=== PATIENT | male | born 1950 | race Caucasian/White ===

== ENCOUNTER 2021-02-17 10:20 | Emergency (ER) | payer MEDICARE ==
[~2021-02-17] VITALS: Ht 175.3 cm; Wt 81.0 kg
[~2021-02-17 10:20] MED LIST: POLY17PO10 PO
[2021-02-17 14:04] VITALS: BP 165/98
[2021-02-17 14:42] LABS: BASOPHILS % (AUTO) 0.4 % (0-1); EOSINOPHILS % (AUTO) 0.2 % (0-6); HEMATOCRIT 38.6 % (42.0-52.0); LYMPHOCYTES # (AUTO) 0.9 X10'3 (1.1-4.8); LYMPHOCYTES % (AUTO) 10.9 % (21-51); MEAN CORPUSCULAR HEMOGLOBIN 35.6 PG (27.0-31.0); MEAN CORPUSCULAR HGB CONC 33.7 g/dL (33.0-36.5); MEAN CORPUSCULAR VOLUME 105.7 FL (78-98); MEAN PLATELET VOLUME 8.3 FL (7.4-10.4); MONOCYTES # (AUTO) 0.8 X10'3 (0-0.9); NEUTROPHILS # (AUTO) 6.2 X10'3 (1.8-7.7); NEUTROPHILS % (AUTO) 78.5 % (42-75); PLATELET COUNT 136 X10'3 (140-440); RED BLOOD COUNT 3.65 X10'6 (4.70-6.10); RED CELL DISTRIBUTION WIDTH 14.2 % (11.5-14.5); WHITE BLOOD COUNT 7.8 X10'3 (4.5-11.0)
[2021-02-17 14:55] LABS: PARTIAL THROMBOPLASTIN TIME 31 SECONDS (22-32)
[2021-02-17 14:56] LABS: ALANINE AMINOTRANSFERASE 99 U/L (12-78); ALBUMIN 2.5 G/DL (3.4-5.0); ALBUMIN/GLOBULIN RATIO 0.5 (1.1-1.5); ALKALINE PHOSPHATASE 103 IU/L (46-116); ANION GAP 9 (8-16); ASPARTATE AMINO TRANSFERASE 129 U/L (10-37); BILIRUBIN,TOTAL 3.8 MG/DL (0.1-1.0); BLOOD UREA NITROGEN 8 MG/DL (7-18); BUN/CREATININE RATIO 10.8 (5.4-32.0); CALCIUM 8.3 MG/DL (8.5-10.1); CHLORIDE 96 MMOL/L (99-107); CREATININE 0.74 MG/DL (0.60-1.10); GLUCOSE 111 MG/DL (70-104); POTASSIUM 3.5 MMOL/L (3.5-5.1); SODIUM 132 MMOL/L (135-145); TOTAL CARBON DIOXIDE 26.7 MMOL/L (24-32); TOTAL PROTEIN 7.2 G/DL (6.4-8.2); eGFR > 90 ML/MIN
[2021-02-17] MEDS ORDERED: SPIR25TA5 PO (15:19)
== END 2021-02-17 15:29 | disposition home or self-care (01) ==
LOC: ER 10:21
DX: K70.31 Alcoholic cirrhosis of liver with ascites (principal); R19.00 Intra-abdominal and pelvic swelling, mass and lump, unspecified site; I10 Essential (primary) hypertension; Z98.890 Other specified postprocedural states; Z72.89 Other problems related to lifestyle; Z79.899 Other long term (current) drug therapy
CPT/HCPCS: 36415; 80053; 85025; 85610; 85730; 93005; 99284

== ENCOUNTER 2021-03-04 06:01 | Day surgery (SDC) | payer MEDICARE ==
[~2021-03-04] VITALS: Ht 175.3 cm; Wt 83.1 kg
[~2021-03-04 06:01] MED LIST changes: +SPIR25TA5 PO
[2021-03-04 06:19] VITALS: BP 143/99
[2021-03-04] MEDS ORDERED: albumin 25% 100mL bottle x 1 IV PRN (06:25)
[2021-03-04] MEDS ORDERED: normal saline 1000ml 1,000 ML IV PRN (06:25)
[2021-03-04] MEDS ORDERED: SPIR25TA5 PO ×2 (06:25→06:26)
[2021-03-04] MEDS ORDERED: OMEP40CA21 PO (06:26)
[2021-03-04 08:47] VITALS: BP 118/80
[2021-03-04 09:02] VITALS: BP 105/69
[2021-03-04 09:17] VITALS: BP 106/73
[2021-03-04 09:32] VITALS: BP 115/68
[2021-03-04 09:50] VITALS: BP 116/74
== END 2021-03-04 10:05 | disposition home or self-care (01) ==
LOC: SSTAY O 06:01
PROVIDERS: ATTEND Radiology Diagnostic Radiology
DX: K70.31 Alcoholic cirrhosis of liver with ascites (principal); I10 Essential (primary) hypertension; Z98.890 Other specified postprocedural states; Z72.89 Other problems related to lifestyle; Z79.899 Other long term (current) drug therapy
CPT/HCPCS: 49083; P9047

== ENCOUNTER 2021-03-12 07:16 | Day surgery (SDC) | payer MEDICARE ==
[~2021-03-12] VITALS: Ht 172.7 cm; Wt 79.1 kg
[~2021-03-12 07:16] MED LIST changes: +OMEP40CA21 PO; -POLY17PO10 PO
[2021-03-12] MEDS ORDERED: albumin 25% 100mL bottle x 1 IV PRN (07:45)
[2021-03-12 08:59] VITALS: BP 99/54
[2021-03-12 09:15] VITALS: BP 100/64
[2021-03-12 09:30] VITALS: BP 110/62
[2021-03-12 09:45] VITALS: BP 96/62
[2021-03-12 10:00] VITALS: BP 105/53
[2021-03-12 10:15] VITALS: BP 110/66
== END 2021-03-12 10:49 | disposition home or self-care (01) ==
LOC: SSTAY O 07:16
PROVIDERS: ATTEND Radiology Vascular & Interventional Radiology
DX: K70.31 Alcoholic cirrhosis of liver with ascites (principal); I10 Essential (primary) hypertension; Z79.899 Other long term (current) drug therapy; Z72.89 Other problems related to lifestyle
CPT/HCPCS: 49083; P9047

== ENCOUNTER 2021-03-20 06:56 | Day surgery (SDC) | payer MEDICARE ==
[~2021-03-20] VITALS: Ht 175.3 cm; Wt 75.7 kg
[2021-03-20 07:20] VITALS: BP 135/89
[2021-03-20] MEDS ORDERED: albumin 25% 100mL bottle x 1 IV PRN (07:30)
[2021-03-20 09:00] VITALS: BP 109/69
== END 2021-03-20 09:05 | disposition home or self-care (01) ==
LOC: SSTAY O 06:56
PROVIDERS: ATTEND Preventive Medicine Aerospace Medicine
DX: K70.31 Alcoholic cirrhosis of liver with ascites (principal); Z53.8 Procedure and treatment not carried out for other reasons; I10 Essential (primary) hypertension; K21.9 Gastro-esophageal reflux disease without esophagitis; Z79.899 Other long term (current) drug therapy
CPT/HCPCS: 76705

== ENCOUNTER 2021-03-31 07:04 | Day surgery (SDC) | payer MEDICARE ==
[~2021-03-31] VITALS: Ht 175.3 cm; Wt 79.2 kg
[2021-03-31] VITALS (8 sets, daily range): BP systolic 106–123; BP diastolic 54–77
[2021-03-31] MEDS ORDERED: albumin 25% 100mL bottle x 1 IV PRN (07:25)
== END 2021-03-31 11:00 | disposition home or self-care (01) ==
LOC: SSTAY O 07:04
PROVIDERS: ATTEND Radiology Vascular & Interventional Radiology
DX: K70.31 Alcoholic cirrhosis of liver with ascites (principal); I10 Essential (primary) hypertension; K21.9 Gastro-esophageal reflux disease without esophagitis; Z79.899 Other long term (current) drug therapy
CPT/HCPCS: 49083

== ENCOUNTER 2021-04-14 08:14 | Day surgery (SDC) | payer MEDICARE ==
[2021-04-14] VITALS (8 sets, daily range): BP systolic 107–124; BP diastolic 62–83
[~2021-04-14] VITALS: Ht 175.3 cm; Wt 82.4 kg
[2021-04-14] MEDS ORDERED: albumin 25% 100mL bottle x 1 IV PRN (08:35)
== END 2021-04-14 11:45 | disposition home or self-care (01) ==
LOC: SSTAY O 08:14
PROVIDERS: ATTEND Radiology Vascular & Interventional Radiology
DX: K70.31 Alcoholic cirrhosis of liver with ascites (principal); I10 Essential (primary) hypertension; K21.9 Gastro-esophageal reflux disease without esophagitis; Z72.89 Other problems related to lifestyle; Z79.899 Other long term (current) drug therapy
CPT/HCPCS: 49083; P9047

== ENCOUNTER 2021-04-27 07:12 | Day surgery (SDC) | payer MEDICARE ==
[~2021-04-27] VITALS: Ht 175.3 cm; Wt 84.3 kg
[~2021-04-27 07:12] MED LIST changes: -SPIR25TA5 PO
[2021-04-27 07:40] VITALS: BP 130/81
[2021-04-27] MEDS ORDERED: albumin 25% 100mL bottle x 1 IV PRN (07:40)
[2021-04-27 08:00] VITALS: BP 118/81
[2021-04-27 09:00] VITALS: BP 120/69
[2021-04-27 10:00] VITALS: BP 100/55
== END 2021-04-27 10:00 | disposition home or self-care (01) ==
LOC: SSTAY O 07:12
PROVIDERS: ATTEND Preventive Medicine Aerospace Medicine
DX: K70.31 Alcoholic cirrhosis of liver with ascites (principal); I10 Essential (primary) hypertension; K21.9 Gastro-esophageal reflux disease without esophagitis; Z79.899 Other long term (current) drug therapy
CPT/HCPCS: 49083; P9047

== ENCOUNTER 2021-05-07 07:11 | Day surgery (SDC) | payer MEDICARE ==
[~2021-05-07] VITALS: Ht 175.3 cm; Wt 83.9 kg
[2021-05-07] VITALS (7 sets, daily range): BP systolic 95–141; BP diastolic 61–91
[2021-05-07] MEDS ORDERED: albumin 25% 100mL bottle x 1 IV PRN (07:45)
== END 2021-05-07 09:55 | disposition home or self-care (01) ==
LOC: SSTAY O 07:11
PROVIDERS: ATTEND Radiology Diagnostic Radiology
DX: K70.31 Alcoholic cirrhosis of liver with ascites (principal); K21.9 Gastro-esophageal reflux disease without esophagitis; Z72.89 Other problems related to lifestyle; Z79.899 Other long term (current) drug therapy
CPT/HCPCS: 49083; P9047

== ENCOUNTER 2021-05-18 07:34 | Day surgery (SDC) | payer MEDICARE ==
[~2021-05-18] VITALS: Ht 175.3 cm; Wt 84.6 kg
[2021-05-18] VITALS (7 sets, daily range): BP systolic 73–133; BP diastolic 28–102
[2021-05-18] MEDS ORDERED: albumin 25% 100mL bottle x 1 IV PRN (08:05)
== END 2021-05-18 10:20 | disposition home or self-care (01) ==
LOC: SSTAY O 07:34
PROVIDERS: ATTEND Radiology Vascular & Interventional Radiology
DX: K70.31 Alcoholic cirrhosis of liver with ascites (principal); I10 Essential (primary) hypertension; K21.9 Gastro-esophageal reflux disease without esophagitis; Z79.899 Other long term (current) drug therapy; Z98.890 Other specified postprocedural states
CPT/HCPCS: 49083; P9047

== ENCOUNTER 2021-05-25 07:23 | Day surgery (SDC) | payer MEDICARE ==
[~2021-05-25] VITALS: Ht 175.3 cm; Wt 82.3 kg
[2021-05-25] VITALS (7 sets, daily range): BP systolic 110–132; BP diastolic 62–83
[2021-05-25] MEDS ORDERED: albumin 25% 100mL bottle x 1 IV PRN (07:50)
== END 2021-05-25 09:43 | disposition home or self-care (01) ==
LOC: SSTAY O 07:23
PROVIDERS: ATTEND Preventive Medicine Aerospace Medicine
DX: K70.31 Alcoholic cirrhosis of liver with ascites (principal); I10 Essential (primary) hypertension; K21.9 Gastro-esophageal reflux disease without esophagitis; Z79.899 Other long term (current) drug therapy
CPT/HCPCS: 49083; P9047

== ENCOUNTER 2021-06-01 07:03 | Day surgery (SDC) | payer MEDICARE ==
[~2021-06-01] VITALS: Ht 175.3 cm; Wt 82.7 kg
[2021-06-01 07:30] VITALS: BP 126/69
[2021-06-01] MEDS ORDERED: albumin 25% 100mL bottle x 1 IV PRN (07:35)
[2021-06-01 09:34] VITALS: BP 116/72
== END 2021-06-01 10:25 | disposition home or self-care (01) ==
LOC: SSTAY O 07:03
PROVIDERS: ATTEND Radiology Vascular & Interventional Radiology
DX: K70.31 Alcoholic cirrhosis of liver with ascites (principal); I10 Essential (primary) hypertension; K21.9 Gastro-esophageal reflux disease without esophagitis; Z72.89 Other problems related to lifestyle; Z79.899 Other long term (current) drug therapy
CPT/HCPCS: 49083; P9047

== ENCOUNTER 2021-06-09 07:11 | Day surgery (SDC) | payer MEDICARE ==
[2021-06-09] VITALS (7 sets, daily range): BP systolic 114–158; BP diastolic 61–85
[~2021-06-09] VITALS: Ht 175.3 cm; Wt 82.9 kg
[2021-06-09] MEDS ORDERED: LIDOcaine 1% 30ml preserv. free vial SQ STA (07:24)
[2021-06-09] MEDS ORDERED: normal saline 1000ml 1,000 ML IV PRN (07:30)
[2021-06-09] MEDS ORDERED: albumin 25% 100mL bottle x 1 IV PRN (07:30)
== END 2021-06-09 10:40 | disposition home or self-care (01) ==
LOC: SSTAY O 07:11
PROVIDERS: ATTEND Radiology Diagnostic Radiology
DX: K70.31 Alcoholic cirrhosis of liver with ascites (principal); I10 Essential (primary) hypertension; K21.9 Gastro-esophageal reflux disease without esophagitis; Z79.899 Other long term (current) drug therapy
CPT/HCPCS: 49083

== ENCOUNTER 2021-06-16 07:05 | Day surgery (SDC) | payer MEDICARE ==
[~2021-06-16] VITALS: Ht 175.3 cm; Wt 83.7 kg
[~2021-06-16 07:05] MED LIST changes: +LIDOcaine 1% 30ml preserv. free vial SQ STA
[2021-06-16] MEDS ORDERED: albumin 25% 100mL bottle x 1 IV PRN (07:30)
[2021-06-16 07:38] VITALS: BP 128/88
[2021-06-16 09:26] VITALS: BP 126/78
[2021-06-16 09:30] VITALS: BP 143/83
[2021-06-16 09:45] VITALS: BP 124/72
[2021-06-16 10:00] VITALS: BP 115/81
[2021-06-16 10:15] VITALS: BP 145/81
== END 2021-06-16 10:30 | disposition home or self-care (01) ==
LOC: SSTAY O 07:05
PROVIDERS: ATTEND Radiology Vascular & Interventional Radiology
DX: K70.31 Alcoholic cirrhosis of liver with ascites (principal); I10 Essential (primary) hypertension; K21.9 Gastro-esophageal reflux disease without esophagitis; Z79.899 Other long term (current) drug therapy
CPT/HCPCS: 49083; J2001; P9047

== ENCOUNTER 2021-06-25 06:58 | Day surgery (SDC) | payer MEDICARE ==
[~2021-06-25] VITALS: Ht 175.3 cm; Wt 83.5 kg
[2021-06-25] VITALS (7 sets, daily range): BP systolic 114–140; BP diastolic 68–87
[~2021-06-25 06:58] MED LIST changes: -LIDOcaine 1% 30ml preserv. free vial SQ STA
[2021-06-25] MEDS ORDERED: albumin 25% 100mL bottle x 1 IV PRN (07:40)
[2021-06-25] MEDS ORDERED: LIDOcaine 1% 30ml preserv. free vial IJ STA (07:59)
== END 2021-06-25 10:20 | disposition home or self-care (01) ==
LOC: SSTAY O 06:58
PROVIDERS: ATTEND Radiology Diagnostic Radiology
DX: K70.31 Alcoholic cirrhosis of liver with ascites (principal); I10 Essential (primary) hypertension; K21.9 Gastro-esophageal reflux disease without esophagitis; Z79.899 Other long term (current) drug therapy
CPT/HCPCS: 49083; P9047

== ENCOUNTER 2021-07-06 07:02 | Day surgery (SDC) | payer MEDICARE ==
[~2021-07-06] VITALS: Ht 175.3 cm; Wt 84.4 kg
[2021-07-06] MEDS ORDERED: LIDOcaine 1% 30ml preserv. free vial SQ STA (07:30)
[2021-07-06] MEDS ORDERED: albumin 25% 100mL bottle x 1 IV PRN (07:35)
[2021-07-06 07:52] VITALS: BP 116/74
[2021-07-06 19:31] VITALS: BP 112/69
[2021-07-06 19:34] VITALS: BP 110/70
== END 2021-07-06 10:15 | disposition home or self-care (01) ==
LOC: SSTAY O 07:02
PROVIDERS: ATTEND Preventive Medicine Aerospace Medicine
DX: K70.31 Alcoholic cirrhosis of liver with ascites (principal); I10 Essential (primary) hypertension; K21.9 Gastro-esophageal reflux disease without esophagitis; Z72.89 Other problems related to lifestyle; Z79.899 Other long term (current) drug therapy
CPT/HCPCS: 49083; P9047

== ENCOUNTER 2021-07-14 07:05 | Day surgery (SDC) | payer MEDICARE ==
[~2021-07-14] VITALS: Ht 175.3 cm; Wt 85.0 kg
[2021-07-14] MEDS ORDERED: albumin 25% 100mL bottle x 1 IV PRN (07:25)
[2021-07-14 07:37] VITALS: BP 128/76
[2021-07-14] MEDS ORDERED: LIDOcaine 1% 30ml preserv. free vial SQ STA (07:44)
[2021-07-14 09:15] VITALS: BP 121/82
[2021-07-14 09:21] VITALS: BP 127/74
[2021-07-14 09:36] VITALS: BP 133/82
[2021-07-14 09:51] VITALS: BP 122/83
[2021-07-14 10:06] VITALS: BP 128/57
== END 2021-07-14 10:15 | disposition home or self-care (01) ==
LOC: SSTAY O 07:05
PROVIDERS: ATTEND Radiology Vascular & Interventional Radiology
DX: K70.31 Alcoholic cirrhosis of liver with ascites (principal); I10 Essential (primary) hypertension; K21.9 Gastro-esophageal reflux disease without esophagitis; Z79.899 Other long term (current) drug therapy
CPT/HCPCS: 49083; P9047

== ENCOUNTER 2021-07-23 06:45 | Day surgery (SDC) | payer MEDICARE ==
[~2021-07-23] VITALS: Ht 175.3 cm; Wt 84.7 kg
[2021-07-23] MEDS ORDERED: albumin 25% 100mL bottle x 1 IV PRN (07:05)
[2021-07-23 08:03] VITALS: BP 133/90
[2021-07-23] MEDS ORDERED: LIDOcaine 1% 30ml preserv. free vial SQ STA (08:26)
[2021-07-23 09:11] VITALS: BP 120/86
[2021-07-23 09:26] VITALS: BP 130/77
[2021-07-23 09:41] VITALS: BP 140/65
[2021-07-23 09:56] VITALS: BP 115/50
[2021-07-23 10:11] VITALS: BP 111/75
== END 2021-07-23 10:19 | disposition home or self-care (01) ==
LOC: SSTAY O 06:45
PROVIDERS: ATTEND Preventive Medicine Aerospace Medicine
DX: K70.31 Alcoholic cirrhosis of liver with ascites (principal); I10 Essential (primary) hypertension; K21.9 Gastro-esophageal reflux disease without esophagitis; Z79.899 Other long term (current) drug therapy
CPT/HCPCS: 49083; J3490; P9047

== ENCOUNTER 2021-07-30 07:01 | Day surgery (SDC) | payer MEDICARE ==
[~2021-07-30] VITALS: Ht 175.3 cm; Wt 80.0 kg
[2021-07-30] VITALS (7 sets, daily range): BP systolic 107–128; BP diastolic 72–81
[2021-07-30] MEDS ORDERED: albumin 25% 100mL bottle x 1 IV PRN (07:20)
[2021-07-30] MEDS ORDERED: FURO-150 PO (07:29)
[2021-07-30] MEDS ORDERED: SPIR50TA5 PO (07:29)
[2021-07-30] MEDS ORDERED: LIDOcaine 1% 30ml preserv. free vial SQ STA (07:36)
== END 2021-07-30 09:50 | disposition home or self-care (01) ==
LOC: SSTAY O 07:01
PROVIDERS: ATTEND Preventive Medicine Aerospace Medicine
DX: K70.31 Alcoholic cirrhosis of liver with ascites (principal); I10 Essential (primary) hypertension; K21.9 Gastro-esophageal reflux disease without esophagitis; Z72.89 Other problems related to lifestyle; Z79.899 Other long term (current) drug therapy
CPT/HCPCS: 49083; P9047

== ENCOUNTER 2021-08-10 07:06 | Day surgery (SDC) | payer MEDICARE ==
[~2021-08-10] VITALS: Ht 175.3 cm; Wt 77.4 kg
[~2021-08-10 07:06] MED LIST changes: +FURO-150 PO; +SPIR50TA5 PO
[2021-08-10 07:17] VITALS: BP 145/92
[2021-08-10] MEDS ORDERED: albumin 25% 100mL bottle x 1 IV PRN (07:25)
== END 2021-08-10 08:40 | disposition home or self-care (01) ==
LOC: SSTAY O 07:06
PROVIDERS: ATTEND Preventive Medicine Aerospace Medicine
DX: K70.31 Alcoholic cirrhosis of liver with ascites (principal); Z53.8 Procedure and treatment not carried out for other reasons; I10 Essential (primary) hypertension; K21.9 Gastro-esophageal reflux disease without esophagitis; Z79.899 Other long term (current) drug therapy
CPT/HCPCS: 76705

== ENCOUNTER 2021-09-14 08:37 | Day surgery (SDC) | payer MEDICARE ==
[~2021-09-14] VITALS: Ht 175.3 cm; Wt 80.6 kg
[2021-09-14] MEDS ORDERED: LIDOcaine 1% 30ml preserv. free vial SQ STA (08:48)
[2021-09-14] MEDS ORDERED: normal saline 1000ml 1,000 ML IV PRN (08:55)
[2021-09-14] MEDS ORDERED: albumin 25% 100mL bottle x 1 IV PRN (08:55)
[2021-09-14 09:11] VITALS: BP 140/84
[2021-09-14 09:15] VITALS: BP 140/84
== END 2021-09-14 09:20 | disposition home or self-care (01) ==
LOC: SSTAY O 08:37
PROVIDERS: ATTEND Radiology Diagnostic Radiology
DX: K70.31 Alcoholic cirrhosis of liver with ascites (principal); I10 Essential (primary) hypertension; K21.9 Gastro-esophageal reflux disease without esophagitis; Z79.899 Other long term (current) drug therapy
CPT/HCPCS: 49083

== ENCOUNTER 2021-10-23 07:47 | Day surgery (SDC) | payer MEDICARE ==
[~2021-10-23] VITALS: Ht 175.3 cm; Wt 82.7 kg
[~2021-10-23 07:47] MED LIST changes: +LIDOcaine 1%/PF 5ML 10 MG/ML VIAL IJ ONE
[2021-10-23 08:00] VITALS: BP 130/89
[2021-10-23] MEDS ORDERED: albumin 25% 100mL bottle x 1 IV PRN (08:00)
[2021-10-23 09:08] VITALS: BP 121/70
== END 2021-10-23 09:29 | disposition home or self-care (01) ==
LOC: SSTAY O 07:47
PROVIDERS: ATTEND Radiology Diagnostic Radiology
DX: K70.31 Alcoholic cirrhosis of liver with ascites (principal); Z53.8 Procedure and treatment not carried out for other reasons; I10 Essential (primary) hypertension; K21.9 Gastro-esophageal reflux disease without esophagitis; Z79.899 Other long term (current) drug therapy
CPT/HCPCS: 76705

== ENCOUNTER 2022-12-03 09:18 | Emergency (ER) | payer MEDICARE ==
[~2022-12-03] VITALS: Ht 175.3 cm; Wt 81.8 kg
[~2022-12-03 09:18] MED LIST changes: -LIDOcaine 1%/PF 5ML 10 MG/ML VIAL IJ ONE
[2022-12-03 09:30] LABS: BASOPHILS % (AUTO) 0.4 % (0-1); EOSINOPHILS % (AUTO) 0.1 % (0-6); HEMATOCRIT 40.6 % (42.0-52.0); HEMOGLOBIN 13.7 g/dl (14.0-17.9); LYMPHOCYTES # (AUTO) 0.4 X10'3 (1.1-4.8); LYMPHOCYTES % (AUTO) 8.4 % (21-51); MEAN CORPUSCULAR HEMOGLOBIN 35.2 PG (27.0-31.0); MEAN CORPUSCULAR HGB CONC 33.6 g/dL (33.0-36.5); MEAN CORPUSCULAR VOLUME 104.6 FL (78-98); MEAN PLATELET VOLUME 7.3 FL (7.4-10.4); MONOCYTES # (AUTO) 0.3 X10'3 (0-0.9); MONOCYTES % (AUTO) 6.6 % (2-12); NEUTROPHILS # (AUTO) 4.3 X10'3 (1.8-7.7); NEUTROPHILS % (AUTO) 84.5 % (42-75); PLATELET COUNT 55 X10'3 (140-440); RED BLOOD COUNT 3.89 X10'6 (4.70-6.10); RED CELL DISTRIBUTION WIDTH 13.3 % (11.5-14.5)
[2022-12-03 09:47] LABS: ALANINE AMINOTRANSFERASE 65 U/L (12-78); ALBUMIN 3.6 G/DL (3.4-5.0); ALBUMIN/GLOBULIN RATIO 0.7 (1.1-1.5); ALKALINE PHOSPHATASE 89 IU/L (46-116); ANION GAP 12 (8-16); ASPARTATE AMINO TRANSFERASE 114 U/L (10-37); BILIRUBIN,TOTAL 3.5 MG/DL (0.1-1.0); BLOOD UREA NITROGEN 17 MG/DL (7-18); BUN/CREATININE RATIO 11.3 (10.0-20.0); CALCIUM 9.2 MG/DL (8.5-10.1); CHLORIDE 93 MMOL/L (99-107); GLUCOSE 128 MG/DL (70-104); POTASSIUM 3.9 MMOL/L (3.5-5.1); SODIUM 132 MMOL/L (135-145); TOTAL CARBON DIOXIDE 26.7 MMOL/L (24-32); eGFR 46 ML/MIN
[2022-12-03 09:55] LABS: CHOL/HDL RATIO 2.2 (0.00-4.99); CHOLESTEROL 186 MG/DL (0-200); HDL CHOLESTEROL 86 MG/DL (35-60); LDL CHOLESTEROL 93 MG/DL (50-100); MAGNESIUM 1.9 MG/DL (1.5-2.4); TRIGLYCERIDES 51 MG/DL (20-135)
[2022-12-03 10:07] LABS: PLATELET ESTIMATE DECREASED; TOTAL CELLS COUNTED 100
[2022-12-03] MEDS ORDERED: ondansetron/PF 4mg/2ml inj IV ONE (10:35)
[2022-12-03 11:33] LABS: CLARITY,URINE CLOUDY (Clear); COLOR,URINE YELLOW (Yellow); GLUCOSE, URINE NEGATIVE (Neg); KETONES,URINE 15 mg/dl (Neg); LEUKOCYTE ESTERASE ,URINE NEGATIVE (Neg); OCCULT BLOOD,URINE MODERATE (Neg); PROTEIN,URINE NEGATIVE (Neg)
[2022-12-03 11:47] LABS: UA COLLECTION TYPE CLN CATCH MIDSTREAM
[2022-12-03 11:48] LABS: NITRITES, URINE NEGATIVE (Neg); RBC,URINE 50-100 /HPF (0-2)
[2022-12-03 11:49] LABS: BACTERIA,URINE 1+ /HPF (Neg); MUCUS STRANDS MODERATE /LPF (Neg); SQUAMOUS EPITHELIAL CELL,UR FEW /LPF (FEW); WBC,URINE 0-4 /HPF (0-4)
[2022-12-03] MEDS ORDERED: normal saline 1000ML IV soln IVB ONE ×2 (12:35)
[2022-12-03] MEDS ORDERED: diphenhydrAMINE 50 mg/ml inj IV ONE (13:00)
[2022-12-03] MEDS ORDERED: metoclopramide 5 mg/ml inj IV ONE (13:00)
[2022-12-03 14:12] VITALS: BP 135/82
== END 2022-12-03 14:16 | disposition home or self-care (01) ==
LOC: ER 09:18
DX: R55 Syncope and collapse (principal); E86.0 Dehydration; I10 Essential (primary) hypertension; K70.30 Alcoholic cirrhosis of liver without ascites
CPT/HCPCS: 36415; 71045; 80053; 80061; 81001; 83735; 83880; 84145; 84484; 85007; 85025; 93005; 96361; 96374; 96375; 99285; J1200; J2405; J2765; J7030; J7040

== ENCOUNTER 2023-01-16 18:17 | Emergency (ER) | payer MEDICARE ==
[~2023-01-16] VITALS: Ht 175.3 cm; Wt 55.5 kg
[2023-01-16 18:25] VITALS: BP 122/70
== END 2023-01-16 19:10 ==
LOC: ER 18:18
DX: M54.9 Dorsalgia, unspecified (principal)
CPT/HCPCS: 99283

== ENCOUNTER 2023-03-25 13:08 | Emergency (ER) | payer MEDICARE ==
[~2023-03-25] VITALS: Ht 175.3 cm; Wt 100.0 kg
[~2023-03-25 13:08] MED LIST changes: -FURO-150 PO; +MULT-25 PO; +ONDA4TAB12 PO
[2023-03-25 13:11] VITALS: TEMP 98
[2023-03-25 14:40] LABS: BASOPHILS # (AUTO) 0.1 X10'3 (0-0.2); BASOPHILS % (AUTO) 0.5 % (0-1); EOSINOPHILS # (AUTO) 0.1 X10'3 (0-0.9); EOSINOPHILS % (AUTO) 0.9 % (0-6); HEMATOCRIT 31.5 % (42.0-52.0); HEMOGLOBIN 10.4 g/dl (14.0-17.9); LYMPHOCYTES # (AUTO) 1.1 X10'3 (1.1-4.8); LYMPHOCYTES % (AUTO) 9.4 % (21-51); MEAN CORPUSCULAR HEMOGLOBIN 37.6 PG (27.0-31.0); MEAN CORPUSCULAR HGB CONC 32.9 g/dL (33.0-36.5); MEAN PLATELET VOLUME 8.4 FL (7.4-10.4); MONOCYTES # (AUTO) 0.9 X10'3 (0-0.9); MONOCYTES % (AUTO) 7.3 % (2-12); NEUTROPHILS # (AUTO) 9.7 X10'3 (1.8-7.7); NEUTROPHILS % (AUTO) 81.9 % (42-75); PLATELET COUNT 103 X10'3 (140-440); RED BLOOD COUNT 2.76 X10'6 (4.70-6.10); RED CELL DISTRIBUTION WIDTH 14.3 % (11.5-14.5); WHITE BLOOD COUNT 11.9 X10'3 (4.5-11.0)
[2023-03-25 14:43] LABS: ALANINE AMINOTRANSFERASE 78 U/L (12-78); ALBUMIN 2.5 G/DL (3.4-5.0); ALKALINE PHOSPHATASE 126 IU/L (46-116); AMYLASE 10 U/L (25-115); ANION GAP 12 (8-16); ASPARTATE AMINO TRANSFERASE 112 U/L (10-37); BILIRUBIN,TOTAL 4.6 MG/DL (0.1-1.0); BLOOD UREA NITROGEN 37 MG/DL (7-18); BUN/CREATININE RATIO 14.5 (10.0-20.0); CALCIUM 9.1 MG/DL (8.5-10.1); CHLORIDE 90 MMOL/L (99-107); CREATININE 2.55 MG/DL (0.60-1.10); ETHANOL 12 MG/DL (<10); GLUCOSE 101 MG/DL (70-104); LIPASE 142 U/L (73-393); POTASSIUM 4.6 MMOL/L (3.5-5.1); SODIUM 125 MMOL/L (135-145); TOTAL CARBON DIOXIDE 22.6 MMOL/L (24-32); eCRCL 26 ML/MIN; eGFR 25 ML/MIN
[2023-03-25 14:57] LABS: ALBUMIN/GLOBULIN RATIO 0.5 (1.1-1.5); TOTAL PROTEIN 7.5 G/DL (6.4-8.2)
[2023-03-25 15:00] LABS: PLATELET ESTIMATE DECREASED; ROULEAUX 1+; TOTAL CELLS COUNTED 100
[2023-03-25 15:01] LABS: POLYCHROMASIA FEW
[2023-03-25 16:00] VITALS: BP 98/59; PULSE 106; RESP 18; O2SAT 97
== END 2023-03-26 00:14 | disposition left against medical advice (07) ==
LOC: ER 13:09
DX: R53.1 Weakness (principal); R15.9 Full incontinence of feces; Z53.21 Procedure and treatment not carried out due to patient leaving prior to being seen by health care provider
CPT/HCPCS: 36415; 80053; 80320; 82150; 83690; 85007; 85025; 99281

== ENCOUNTER 2023-04-02 00:07 | Inpatient (IN) | payer MEDICARE ==
[~2023-04-02] VITALS: Ht 175.3 cm; Wt 81.8 kg
[2023-04-02] MEDS ORDERED: ringers solution, lacted 1,000 ML IV ONE (00:20)
[2023-04-02 01:38] LABS: ALANINE AMINOTRANSFERASE 79 U/L (12-78); ALBUMIN 2.5 G/DL (3.4-5.0); ALKALINE PHOSPHATASE 105 IU/L (46-116); ANION GAP 12 (8-16); ASPARTATE AMINO TRANSFERASE 111 U/L (10-37); BILIRUBIN,TOTAL 5.2 MG/DL (0.1-1.0); BLOOD UREA NITROGEN 72 MG/DL (7-18); BUN/CREATININE RATIO 16.8 (10.0-20.0); CALCIUM 9.1 MG/DL (8.5-10.1); CHLORIDE 94 MMOL/L (99-107); CREATININE 4.28 MG/DL (0.60-1.10); GLUCOSE 99 MG/DL (70-104); POTASSIUM 4.7 MMOL/L (3.5-5.1); SODIUM 130 MMOL/L (135-145); TOTAL CARBON DIOXIDE 24.5 MMOL/L (24-32); eCRCL 15 ML/MIN; eGFR 14 ML/MIN
[2023-04-02 01:40] LABS: APTT 28 SECONDS (22-32); INR 1.3 INR; LACTIC SEPSIS 1.6 MMOL/L (0.4-2.0); PROTHROMBIN TIME 13.3 SECONDS (9.0-12.0)
[2023-04-02 01:49] LABS: CREATINE KINASE 22 U/L (39-308); CREATINE KINASE MB 0.9 ng/ml (0.3-3.6); ETHANOL < 10 MG/DL (<10); PRO BRAIN NATRIURETIC PEPTIDE 1592 PG/ML (0-125)
[2023-04-02 01:58] LABS: ALBUMIN/GLOBULIN RATIO 0.5 (1.1-1.5); TOTAL PROTEIN 7.4 G/DL (6.4-8.2)
[2023-04-02 02:15] LABS: AMMONIA < 10 UMOL/L (11-32)
[2023-04-02 03:00] LABS: EOSINOPHILS % (AUTO) 0.4 % (0-6); WHITE BLOOD COUNT 9.2 X10'3 (4.5-11.0)
[2023-04-02 03:01] LABS: BASOPHILS % (AUTO) 0.4 % (0-1); HEMATOCRIT 29.5 % (42.0-52.0); LYMPHOCYTES # (AUTO) 1.1 X10'3 (1.1-4.8); LYMPHOCYTES % (AUTO) 11.9 % (21-51); MEAN CORPUSCULAR HEMOGLOBIN 38.2 PG (27.0-31.0); MEAN CORPUSCULAR HGB CONC 34.1 g/dL (33.0-36.5); MEAN PLATELET VOLUME 8.5 FL (7.4-10.4); MONOCYTES # (AUTO) 0.9 X10'3 (0-0.9); MONOCYTES % (AUTO) 9.5 % (2-12); NEUTROPHILS # (AUTO) 7.2 X10'3 (1.8-7.7); NEUTROPHILS % (AUTO) 77.8 % (42-75); PLATELET COUNT 75 X10'3 (140-440); RED BLOOD COUNT 2.63 X10'6 (4.70-6.10); RED CELL DISTRIBUTION WIDTH 13.9 % (11.5-14.5)
[2023-04-02] MEDS ORDERED: potassium Cl 40MEQ/1/2NS 520ml 520 ML IV PRN (03:50)
[2023-04-02] MEDS ORDERED: dextrose 50%-water 50ml dispensing syringe IV PRN (03:50)
[2023-04-02] MEDS ORDERED: magnesium 2GM in 50ml NS 50 ML IV PRN (03:50)
[2023-04-02] MEDS ORDERED: bisacodyl 10mg suppository rectal RC PRN (03:50)
[2023-04-02] MEDS ORDERED: mag hydrox/Alum hydrox/simeth 30ml oral suspension PO PRN (03:50)
[2023-04-02] MEDS ORDERED: magnesium 4gm in 100ml NS 100 ML IV PRN (03:50)
[2023-04-02] MEDS ORDERED: haloperidol 5mg tablet PO PRN (03:50)
[2023-04-02] MEDS ORDERED: LORazepam 1 MG tablet PO PRN (03:50)
[2023-04-02] MEDS ORDERED: potassium Cl 20 mEq SR tablet PO PRN ×2 (03:50)
[2023-04-02] MEDS ORDERED: haloperidol lactate 5mg/ml inj IM PRN (03:50)
[2023-04-02] MEDS ORDERED: LORazepam 2 mg/ml vial IV PRN (03:50)
[2023-04-02] MEDS ORDERED: acetaminophen 325mg tablet PO PRN (03:50)
[2023-04-02] MEDS ORDERED: ondansetron/PF 4mg/2ml inj IV PRN (03:50)
[2023-04-02 05:36] LABS: PLATELET ESTIMATE DECREASED; TOTAL CELLS COUNTED 100
[2023-04-02] MEDS ORDERED: FURO20TA4 PO (05:50)
[2023-04-02 07:30] VITALS: BP 101/60; PULSE 91; RESP 16; TEMP 98.1; O2SAT 98
[2023-04-02 08:00] VITALS: RESP 16; O2SAT 94
[2023-04-02] MEDS: K and/or MAG REPLACEMENT MC SCH ×2 (08:00→19:36)
[2023-04-02] MEDS: docusate sod 100mg capsule PO SCH ×2 (08:36→20:07)
[2023-04-02] MEDS: thiamine 100mg tablet PO SCH ×3 (08:36→20:07)
[2023-04-02 10:00] VITALS: BP 97/54; PULSE 67; RESP 14; TEMP 97.7; O2SAT 99
[2023-04-02 18:00] VITALS: BP 96/61; PULSE 92; RESP 13; TEMP 98.4; O2SAT 98
--- NOTE | 2023-04-02 18:05 | NUR ---
Patient in room ORTHO 4012. I have received report from CHRISTINA Ly and had the opportunity to ask questions and assume patient care.
[2023-04-02] MEDS ORDERED: potassium CL 20mEq in D5-1/2NS 1,000 ML IV SCH (19:10)
--- NOTE | 2023-04-02 19:24 | NUR ---
Dr. Crabtree. I just want to clarify ivf order for ptShiela Machado in [id number]. his k level is 4.7. thanks, marya [phone]
[2023-04-02] MEDS: dextrose 5%-1/4 normal saline 1,000 ML IV SCH (20:07)
[2023-04-02] MEDS: CefTRIAXone/D5W-Rocephin 1gm 50 ML IV SCH (20:07)
[2023-04-02] MEDS ORDERED: proCHLORperazine 10 MG/2 ml inj IV PRN (21:40)
[2023-04-02 22:00] VITALS: BP 112/58; PULSE 119; RESP 18; TEMP 97.3; O2SAT 92
[2023-04-02] MEDS ORDERED: ipratropium/albuterol 3ml nebule NEB PRN (22:00)
[2023-04-02 22:28] VITALS: PULSE 107; RESP 18; O2SAT 94
[2023-04-03] VITALS (7 sets, daily range): BP systolic 85–108; BP diastolic 47–57; PULSE 75–103; RESP 10–20; TEMP 97.3–97.8; O2SAT 92–96
[2023-04-03 00:59] LABS: HEMATOCRIT 30.5 % (42.0-52.0); HEMOGLOBIN 10.6 g/dl (14.0-17.9); MEAN CORPUSCULAR HEMOGLOBIN 38.9 PG (27.0-31.0); MEAN CORPUSCULAR HGB CONC 34.8 g/dL (33.0-36.5); MEAN CORPUSCULAR VOLUME 111.7 FL (78-98); MEAN PLATELET VOLUME 8.9 FL (7.4-10.4); PLATELET COUNT 71 X10'3 (140-440); RED BLOOD COUNT 2.73 X10'6 (4.70-6.10); RED CELL DISTRIBUTION WIDTH 13.5 % (11.5-14.5); WHITE BLOOD COUNT 10.9 X10'3 (4.5-11.0)
[2023-04-03] MEDS: pantoprazole 40MG/NS 100ML BAG 100 ML IV SCH ×5 (01:00→21:33)
[2023-04-03] MEDS: dextrose 5%-1/4 normal saline 1,000 ML IV SCH ×4 (04:48→23:27)
[2023-04-03 05:59] LABS: BASOPHILS % (AUTO) 0.3 % (0-1); EOSINOPHILS % (AUTO) 0.1 % (0-6); HEMATOCRIT 26.1 % (42.0-52.0); HEMOGLOBIN 8.9 g/dl (14.0-17.9); LYMPHOCYTES # (AUTO) 0.8 X10'3 (1.1-4.8); LYMPHOCYTES % (AUTO) 6.9 % (21-51); MEAN CORPUSCULAR HEMOGLOBIN 38.3 PG (27.0-31.0); MEAN CORPUSCULAR HGB CONC 34.3 g/dL (33.0-36.5); MEAN CORPUSCULAR VOLUME 111.8 FL (78-98); MEAN PLATELET VOLUME 8.3 FL (7.4-10.4); MONOCYTES # (AUTO) 0.9 X10'3 (0-0.9); MONOCYTES % (AUTO) 8.4 % (2-12); NEUTROPHILS # (AUTO) 9.3 X10'3 (1.8-7.7); NEUTROPHILS % (AUTO) 84.3 % (42-75); PLATELET COUNT 72 X10'3 (140-440); RED BLOOD COUNT 2.34 X10'6 (4.70-6.10); RED CELL DISTRIBUTION WIDTH 13.7 % (11.5-14.5)
--- NOTE | 2023-04-03 06:08 | NUR ---
Problems reprioritized. Patient report given, questions answered & plan of care reviewed with CHRISTINA Ly.
[2023-04-03 06:17] LABS: ALANINE AMINOTRANSFERASE 63 U/L (12-78); ALKALINE PHOSPHATASE 86 IU/L (46-116); ANION GAP 8 (8-16); ASPARTATE AMINO TRANSFERASE 87 U/L (10-37); BILIRUBIN,TOTAL 4.1 MG/DL (0.1-1.0); BLOOD UREA NITROGEN 71 MG/DL (7-18); BUN/CREATININE RATIO 17.6 (10.0-20.0); CALCIUM 8.2 MG/DL (8.5-10.1); CHLORIDE 94 MMOL/L (99-107); CREATININE 4.04 MG/DL (0.60-1.10); GLUCOSE 176 MG/DL (70-104); MAGNESIUM 2.3 MG/DL (1.5-2.4); POTASSIUM 4.2 MMOL/L (3.5-5.1); SODIUM 129 MMOL/L (135-145); TOTAL CARBON DIOXIDE 27.4 MMOL/L (24-32); eCRCL 16 ML/MIN; eGFR 15 ML/MIN
[2023-04-03 06:23] LABS: ALBUMIN/GLOBULIN RATIO 0.5 (1.1-1.5); PHOSPHORUS 4.4 MG/DL (2.3-4.5); TOTAL PROTEIN 6.2 G/DL (6.4-8.2)
[2023-04-03] MEDS: CefTRIAXone/D5W-Rocephin 1gm 50 ML IV SCH (07:51)
[2023-04-03] MEDS: thiamine 100mg tablet PO SCH ×5 (07:51→21:44)
[2023-04-03] MEDS: docusate sod 100mg capsule PO SCH ×2 (07:51→20:00)
[2023-04-03] MEDS: K and/or MAG REPLACEMENT MC SCH ×2 (08:00→20:00)
[2023-04-03 10:33] LABS: PLATELET ESTIMATE DECREASED; POLYCHROMASIA 1+; TARGET CELLS FEW
[2023-04-03 10:34] LABS: ROULEAUX 1+
[2023-04-04] VITALS (9 sets, daily range): BP systolic 76–111; BP diastolic 45–58; PULSE 88–102; RESP 14–18; TEMP 97.7–98.8; O2SAT 92–96
[2023-04-04] MEDS: pantoprazole 40MG/NS 100ML BAG 100 ML IV SCH ×4 (03:09→21:29)
[2023-04-04] MEDS: dextrose 5%-1/4 normal saline 1,000 ML IV SCH (06:10)
[2023-04-04 06:15] LABS: BASOPHILS % (AUTO) 0.6 % (0-1); EOSINOPHILS # (AUTO) 0.2 X10'3 (0-0.9); EOSINOPHILS % (AUTO) 2.7 % (0-6); HEMATOCRIT 24.9 % (42.0-52.0); HEMOGLOBIN 8.6 g/dl (14.0-17.9); LYMPHOCYTES # (AUTO) 1.2 X10'3 (1.1-4.8); LYMPHOCYTES % (AUTO) 17.7 % (21-51); MEAN CORPUSCULAR HEMOGLOBIN 38.5 PG (27.0-31.0); MEAN CORPUSCULAR HGB CONC 34.4 g/dL (33.0-36.5); MEAN PLATELET VOLUME 8.7 FL (7.4-10.4); MONOCYTES # (AUTO) 0.6 X10'3 (0-0.9); MONOCYTES % (AUTO) 9.3 % (2-12); NEUTROPHILS # (AUTO) 4.8 X10'3 (1.8-7.7); NEUTROPHILS % (AUTO) 69.7 % (42-75); PLATELET COUNT 61 X10'3 (140-440); RED BLOOD COUNT 2.23 X10'6 (4.70-6.10); RED CELL DISTRIBUTION WIDTH 13.3 % (11.5-14.5); WHITE BLOOD COUNT 6.9 X10'3 (4.5-11.0)
[2023-04-04 06:34] LABS: ALANINE AMINOTRANSFERASE 51 U/L (12-78); ALBUMIN 1.8 G/DL (3.4-5.0); ALBUMIN/GLOBULIN RATIO 0.4 (1.1-1.5); ALKALINE PHOSPHATASE 82 IU/L (46-116); ANION GAP 9 (8-16); ASPARTATE AMINO TRANSFERASE 78 U/L (10-37); BILIRUBIN,TOTAL 2.7 MG/DL (0.1-1.0); BLOOD UREA NITROGEN 60 MG/DL (7-18); BUN/CREATININE RATIO 15.7 (10.0-20.0); CALCIUM 8.1 MG/DL (8.5-10.1); CHLORIDE 92 MMOL/L (99-107); CREATININE 3.83 MG/DL (0.60-1.10); GLUCOSE 154 MG/DL (70-104); MAGNESIUM 2.1 MG/DL (1.5-2.4); PHOSPHORUS 3.1 MG/DL (2.3-4.5); POTASSIUM 3.6 MMOL/L (3.5-5.1); SODIUM 126 MMOL/L (135-145); TOTAL CARBON DIOXIDE 24.8 MMOL/L (24-32); TOTAL PROTEIN 5.9 G/DL (6.4-8.2); eCRCL 17 ML/MIN; eGFR 16 ML/MIN
--- NOTE | 2023-04-04 06:47 | NUR ---
Problems reprioritized. Patient report given, questions answered & plan of care reviewed with CHRISTINA AGUAYO.
--- NOTE | 2023-04-04 06:50 | NUR ---
Patient in room ORTHO 4012. I have received report from Fiordaliza and had the opportunity to ask questions and assume patient care.
[2023-04-04] MEDS: K and/or MAG REPLACEMENT MC SCH ×2 (08:00→20:00)
[2023-04-04] MEDS: docusate sod 100mg capsule PO SCH ×2 (08:00→20:00)
[2023-04-04] MEDS: CefTRIAXone/D5W-Rocephin 1gm 50 ML IV SCH (08:17)
--- NOTE | 2023-04-04 09:47 | NUR ---
Low carmina consult: Pt with a carmina score of 12 per EMR. Per RN physical assessment, pt has scattered bruising and scratches over entire body and a pressure ulcer to sacrum. Wound care has been consulting,pending [facility] note. Will continue to monitor. Addendum: 04/04/23 at [address] Amended: Links added.
[2023-04-04] MEDS: thiamine 100mg tablet PO SCH ×2 (13:00→21:29)
--- NOTE | 2023-04-04 13:40 | NUR ---
RE: Carter in , unable to obtain 2nd IV, can we change fluids or protonix to PO? Zonia
--- NOTE | 2023-04-04 14:50 | NUR ---
PRESSURE ULCER EDUCATION: DEFINITION: A pressure ulcer is an area of skin that breaks down when you stay in one position too long. The constant pressure against the skin reduces the blood flow to that area and the affected tissue dies. CAUSES: "Being bedridden or in a wheelchair "Fragile skin "Having a chronic condition, such as diabetes or vascular disease "Inability to move certain parts of your body without assistance "Older age "Incontinence of urine or stool SYMPTOMS: "A reddened area that DOES NOT turn white when pressed on - this can be the beginning of a pressure ulcer "A blister, deep sore or a crater - these can be advanced pressure ulcers FIRST AID: "Relieve the pressure on this area "Keep the area clean and dry "Call your primary doctor if you see any of the above symptoms "DO NOT massage the area "DO NOT use a donut shaped or ring shaped pillow- these actually interfere with the blood flow and cause complications PREVENTION: "Check for pressure ulcers everyday "Change position at least every two hours to relieve pressure "Use items that help relieve pressure- pillows, sheepskin, foam padding, and powders. "Keep skin clean and dry "Eat healthy well balanced meals "Exercise daily IF YOU SEE ANY OF THESE SYMPTOMS WHILE IN THE HOSPITAL - TELL YOUR NURSE IMMEDIATELY. IF YOU SEE ANY OF THESE SYMPTOMS WHILE AT HOME OR HAVE ANY QUESTIONS OR CONCERNS ABOUT PRESSURE ULCERS - CALL YOUR PRIMARY DOCTOR IMMEDIATELY. Addendum: 04/04/23 at 1450 by Silvia Negro LVN Amended: Links added.
--- NOTE | 2023-04-04 14:51 | NUR ---
Received order for consult. Met with patient in regards to alcohol use and to see if patient was interested in resources for treatment options. Patient would like outpatient resources. I gave patient a list of resources, a card for [facility] and my card to call me with any questions.
[2023-04-04] MEDS: normal saline 1000ml 1,000 ML IV SCH (16:26)
--- NOTE | 2023-04-04 18:33 | NUR ---
Problems reprioritized. Patient report given, questions answered & plan of care reviewed with Fiordaliza.
[2023-04-05] VITALS (7 sets, daily range): BP systolic 80–101; BP diastolic 36–61; PULSE 79–102; RESP 12–20; TEMP 97.3–98.7; O2SAT 94–99
[2023-04-05] MEDS: normal saline 1000ml 1,000 ML IV SCH ×5 (02:10→22:10)
--- NOTE | 2023-04-05 03:00 | NUR ---
PT BP CUFF TOO LARGE IN ROOM SWITCHED TO THE SMALL ADULT CUFF AND VS WERE IMPROVED. RECOMMEND USE OF THE SMALL ADULT CUFF IT IS THE CORRECT SIZE TO GET AN ACCURATE BP ON THIS PATIENT.
--- NOTE | 2023-04-05 06:30 | NUR ---
Problems reprioritized. Patient report given, questions answered & plan of care reviewed with CHRISTINA COLE.
--- NOTE | 2023-04-05 06:50 | NUR ---
Patient in room ORTHO 4012. I have received report from CHRISTINA Mancera and had the opportunity to ask questions and assume patient care.
[2023-04-05 07:08] LABS: BASOPHILS % (AUTO) 0.4 % (0-1); EOSINOPHILS # (AUTO) 0.1 X10'3 (0-0.9); EOSINOPHILS % (AUTO) 1.9 % (0-6); HEMATOCRIT 24.4 % (42.0-52.0); HEMOGLOBIN 8.2 g/dl (14.0-17.9); LYMPHOCYTES # (AUTO) 0.9 X10'3 (1.1-4.8); LYMPHOCYTES % (AUTO) 15.4 % (21-51); MEAN CORPUSCULAR HEMOGLOBIN 37.6 PG (27.0-31.0); MEAN CORPUSCULAR HGB CONC 33.6 g/dL (33.0-36.5); MEAN CORPUSCULAR VOLUME 111.7 FL (78-98); MEAN PLATELET VOLUME 8.5 FL (7.4-10.4); MONOCYTES # (AUTO) 0.5 X10'3 (0-0.9); MONOCYTES % (AUTO) 8.6 % (2-12); NEUTROPHILS # (AUTO) 4.4 X10'3 (1.8-7.7); NEUTROPHILS % (AUTO) 73.7 % (42-75); PLATELET COUNT 55 X10'3 (140-440); RED BLOOD COUNT 2.18 X10'6 (4.70-6.10); RED CELL DISTRIBUTION WIDTH 13.5 % (11.5-14.5); WHITE BLOOD COUNT 5.9 X10'3 (4.5-11.0)
[2023-04-05 07:09] LABS: ALANINE AMINOTRANSFERASE 43 U/L (12-78); ALBUMIN 1.6 G/DL (3.4-5.0); ALBUMIN/GLOBULIN RATIO 0.4 (1.1-1.5); ALKALINE PHOSPHATASE 76 IU/L (46-116); ANION GAP 8 (8-16); ASPARTATE AMINO TRANSFERASE 66 U/L (10-37); BLOOD UREA NITROGEN 54 MG/DL (7-18); BUN/CREATININE RATIO 15.5 (10.0-20.0); CHLORIDE 95 MMOL/L (99-107); CREATININE 3.48 MG/DL (0.60-1.10); GLUCOSE 104 MG/DL (70-104); PHOSPHORUS 3.3 MG/DL (2.3-4.5); POTASSIUM 3.8 MMOL/L (3.5-5.1); SODIUM 127 MMOL/L (135-145); TOTAL CARBON DIOXIDE 24.5 MMOL/L (24-32); TOTAL PROTEIN 5.4 G/DL (6.4-8.2); eCRCL 19 ML/MIN; eGFR 17 ML/MIN
[2023-04-05] MEDS ORDERED: spironolactone 50 MG tablet PO SCH (08:00)
[2023-04-05] MEDS: thiamine 100mg tablet PO SCH ×4 (08:00→21:33)
[2023-04-05] MEDS: docusate sod 100mg capsule PO SCH ×2 (08:30→08:44)
[2023-04-05] MEDS: furosemide 20MG tablet PO SCH ×2 (08:30→08:44)
[2023-04-05] MEDS: CefTRIAXone/D5W-Rocephin 1gm 50 ML IV SCH (08:30)
[2023-04-05] MEDS: folic acid 1mg tablet PO SCH (08:30)
[2023-04-05] MEDS: K and/or MAG REPLACEMENT MC SCH ×2 (08:35→20:00)
[2023-04-05] MEDS: pantoprazole 40MG/NS 100ML BAG 100 ML IV SCH (08:45)
--- NOTE | 2023-04-05 15:35 | NUR ---
F/u 04/05: Per [facility] note, pt w/ partial thickness MASD to sacrum/coccyx. Will monitor for nutrition intervention needs. Addendum: 04/05/23 at [address] Amended: Links added.
[2023-04-05] MEDS: midodrine tablet 2.5 MG TABLET PO SCH (16:00)
--- NOTE | 2023-04-05 19:03 | NUR ---
Problems reprioritized. Patient report given, questions answered & plan of care reviewed with CHRISTINA Mancera.
[2023-04-05] MEDS: sodium chloride 1gm tablet PO SCH (21:32)
[2023-04-05] MEDS: pantoprazole 40mg Tablet.DR PO SCH (21:33)
--- NOTE | 2023-04-06 01:14 | NUR ---
PT BP LOW WHEN USING THE NORMAL SIZE CUFF THIS PATIENT'S ARM IS SMALLER AND REQUIRES THE SMALL ADULT CUFF TO GET A PROPER READING. 2300 BP TAKEN WITH THE SMALLER CUFF IN COMPARISON TO THE 2200 BP TAKEN WITH THE ADULT REGULAR CUFF.
--- NOTE | 2023-04-06 02:50 | NUR ---
PT HAS BEEN EXTREMELY RESISTIVE TO CARE. DOES NOT WANT TO BE BOTHERED. PT JUMPED UP OUT OF BED WITHOUT ASSISTANCE AND WAS ON COMMODE BUT HAD FORGOTTEN ABOUT HIS IV AND IT WAS STRETCHED OUT. TOLD PT TO WAIT SO HE DIDN'T LOSE HIS IV HE STATED THAT WE WERE "HEMORRHOIDS" AND "TERDS". HE WANTED TO BE LEFT ALONE. PT MISSED THE COMMODE AND VOIDED ON THE FLOOR. WAS ABLE TO TUCK HIM BACK IN BED AND SET HIS BED ALARM.
[2023-04-06 06:00] VITALS: BP 104/57; PULSE 84; RESP 16; TEMP 98.9; O2SAT 95
--- NOTE | 2023-04-06 06:05 | NUR ---
Problems reprioritized. Patient report given, questions answered & plan of care reviewed with CHRISTINA COLE.
--- NOTE | 2023-04-06 06:37 | NUR ---
Patient in room ORTHO 4012. I have received report from CHRISTINA Mancera and had the opportunity to ask questions and assume patient care.
[2023-04-06 06:55] LABS: BASOPHILS % (AUTO) 0.5 % (0-1); EOSINOPHILS # (AUTO) 0.1 X10'3 (0-0.9); EOSINOPHILS % (AUTO) 1.6 % (0-6); HEMATOCRIT 26.1 % (42.0-52.0); HEMOGLOBIN 8.9 g/dl (14.0-17.9); LYMPHOCYTES # (AUTO) 0.8 X10'3 (1.1-4.8); LYMPHOCYTES % (AUTO) 14.2 % (21-51); MEAN CORPUSCULAR HEMOGLOBIN 38.2 PG (27.0-31.0); MEAN CORPUSCULAR VOLUME 112.2 FL (78-98); MEAN PLATELET VOLUME 8.6 FL (7.4-10.4); MONOCYTES # (AUTO) 0.4 X10'3 (0-0.9); MONOCYTES % (AUTO) 7.5 % (2-12); NEUTROPHILS # (AUTO) 4.5 X10'3 (1.8-7.7); NEUTROPHILS % (AUTO) 76.2 % (42-75); PLATELET COUNT 60 X10'3 (140-440); RED BLOOD COUNT 2.33 X10'6 (4.70-6.10); RED CELL DISTRIBUTION WIDTH 13.1 % (11.5-14.5); WHITE BLOOD COUNT 5.9 X10'3 (4.5-11.0)
[2023-04-06] MEDS: normal saline 1000ml 1,000 ML IV SCH ×4 (06:55→20:20)
[2023-04-06 07:46] LABS: ALANINE AMINOTRANSFERASE 45 U/L (12-78); ALBUMIN 1.7 G/DL (3.4-5.0); ALBUMIN/GLOBULIN RATIO 0.4 (1.1-1.5); ALKALINE PHOSPHATASE 81 IU/L (46-116); ANION GAP 9 (8-16); ASPARTATE AMINO TRANSFERASE 62 U/L (10-37); BILIRUBIN,TOTAL 3.2 MG/DL (0.1-1.0); BLOOD UREA NITROGEN 54 MG/DL (7-18); BUN/CREATININE RATIO 16.2 (10.0-20.0); CHLORIDE 97 MMOL/L (99-107); CREATININE 3.34 MG/DL (0.60-1.10); GLUCOSE 105 MG/DL (70-104); MAGNESIUM 1.9 MG/DL (1.5-2.4); POTASSIUM 3.8 MMOL/L (3.5-5.1); SODIUM 129 MMOL/L (135-145); TOTAL CARBON DIOXIDE 23.5 MMOL/L (24-32); TOTAL PROTEIN 5.7 G/DL (6.4-8.2); eCRCL 20 ML/MIN; eGFR 18 ML/MIN
[2023-04-06] MEDS: K and/or MAG REPLACEMENT MC SCH ×2 (08:00→20:00)
[2023-04-06] MEDS: CefTRIAXone/D5W-Rocephin 1gm 50 ML IV SCH (08:55)
[2023-04-06] MEDS: pantoprazole 40mg Tablet.DR PO SCH ×2 (08:55→20:12)
[2023-04-06] MEDS: docusate sod 100mg capsule PO SCH ×2 (08:57→20:12)
[2023-04-06] MEDS: thiamine 100mg tablet PO SCH ×3 (08:57→20:13)
[2023-04-06] MEDS: sodium chloride 1gm tablet PO SCH ×3 (08:57→20:12)
[2023-04-06 10:00] VITALS: BP 105/67; PULSE 99; RESP 18; TEMP 98.9; O2SAT 95
[2023-04-06] MEDS: midodrine tablet 2.5 MG TABLET PO SCH ×2 (10:44→12:00)
[2023-04-06 11:34] VITALS: PULSE 98; RESP 19; O2SAT 98
[2023-04-06 18:00] VITALS: BP 103/52; PULSE 87; RESP 14; TEMP 98.9; O2SAT 94
--- NOTE | 2023-04-06 18:20 | NUR ---
Patient in room ORTHO 4012. I have received report from CHRISTINA Weber and had the opportunity to ask questions and assume patient care.
--- NOTE | 2023-04-06 18:30 | NUR ---
Problems reprioritized. Patient report given, questions answered & plan of care reviewed with
[2023-04-06 20:10] VITALS: RESP 14; O2SAT 94
[2023-04-06 22:00] VITALS: BP 91/56; PULSE 85; RESP 14; TEMP 98.9; O2SAT 95
--- NOTE | 2023-04-07 06:10 | NUR ---
Problems reprioritized. Patient report given, questions answered & plan of care reviewed with CHRISTINA Weber.
[2023-04-07 06:21] LABS: BASOPHILS % (AUTO) 0.7 % (0-1); EOSINOPHILS # (AUTO) 0.1 X10'3 (0-0.9); EOSINOPHILS % (AUTO) 1.5 % (0-6); HEMATOCRIT 24.2 % (42.0-52.0); HEMOGLOBIN 8.2 g/dl (14.0-17.9); LYMPHOCYTES # (AUTO) 0.8 X10'3 (1.1-4.8); LYMPHOCYTES % (AUTO) 12.3 % (21-51); MEAN CORPUSCULAR HGB CONC 33.8 g/dL (33.0-36.5); MEAN CORPUSCULAR VOLUME 112.4 FL (78-98); MEAN PLATELET VOLUME 8.3 FL (7.4-10.4); MONOCYTES # (AUTO) 0.6 X10'3 (0-0.9); MONOCYTES % (AUTO) 9.4 % (2-12); NEUTROPHILS # (AUTO) 4.9 X10'3 (1.8-7.7); NEUTROPHILS % (AUTO) 76.1 % (42-75); PLATELET COUNT 58 X10'3 (140-440); RED BLOOD COUNT 2.15 X10'6 (4.70-6.10); RED CELL DISTRIBUTION WIDTH 13.3 % (11.5-14.5); WHITE BLOOD COUNT 6.4 X10'3 (4.5-11.0)
--- NOTE | 2023-04-07 06:26 | NUR ---
Patient in room ORTHO 4012. I have received report from CHRISTINA Hoyt and had the opportunity to ask questions and assume patient care.
[2023-04-07 06:50] LABS: ALANINE AMINOTRANSFERASE 37 U/L (12-78); ALBUMIN 1.7 G/DL (3.4-5.0); ALBUMIN/GLOBULIN RATIO 0.4 (1.1-1.5); ALKALINE PHOSPHATASE 81 IU/L (46-116); ANION GAP 10 (8-16); ASPARTATE AMINO TRANSFERASE 60 U/L (10-37); BLOOD UREA NITROGEN 52 MG/DL (7-18); BUN/CREATININE RATIO 16.9 (10.0-20.0); CHLORIDE 102 MMOL/L (99-107); CREATININE 3.07 MG/DL (0.60-1.10); GLUCOSE 101 MG/DL (70-104); MAGNESIUM 1.8 MG/DL (1.5-2.4); POTASSIUM 3.7 MMOL/L (3.5-5.1); SODIUM 134 MMOL/L (135-145); TOTAL CARBON DIOXIDE 22.3 MMOL/L (24-32); TOTAL PROTEIN 5.5 G/DL (6.4-8.2); eCRCL 21 ML/MIN; eGFR 20 ML/MIN
[2023-04-07 07:30] LABS: PLATELET ESTIMATE DECREASED; TOTAL CELLS COUNTED 100
[2023-04-07] MEDS: pantoprazole 40mg Tablet.DR PO SCH (08:00)
[2023-04-07] MEDS: thiamine 100mg tablet PO SCH ×3 (08:00→13:00)
[2023-04-07] MEDS: folic acid 1mg tablet PO SCH (08:00)
[2023-04-07] MEDS: CefTRIAXone/D5W-Rocephin 1gm 50 ML IV SCH (08:00)
[2023-04-07] MEDS: docusate sod 100mg capsule PO SCH (08:00)
[2023-04-07] MEDS: sodium chloride 1gm tablet PO SCH ×2 (08:00→13:00)
[2023-04-07] MEDS: K and/or MAG REPLACEMENT MC SCH (08:00)
--- NOTE | 2023-04-07 08:29 | NUR ---
pt refuses to take any of his morning medications. Pt has been educated on the importance of taking each medication and says he "wont take any of them, you have been doing this to me for five days, and i don't need it". This is his repeated statement each time I asked if he would take his medications. Pt is resistive to care. He is in no distress at this time and is stable. Sitting up in bed eating breakfasts and asking me to call his son for him but does not know his number or his passcode into his phone. I asked him if he knew where he was and his name, events, and he was able to recall, but pt still seems very confused at this time and I will continue monitor patient and talk to the doctor.
--- NOTE | 2023-04-07 13:40 | NUR ---
Initial: Pt admit for acute renal failure with hyponatremia, metabolic encephalopathy, and transaminitis likely secondary to cirrhosis of the liver with continued alcohol use. Pt with routine Thiamine and Folic acid on med list though pt documented to be refusing medications. Per report s/p paracentesis 04/04 with 3.3 L fluid removed. Per EMR pt A/O x 2 and confused. Diet has fluctuated throughout admit with clear liquid, full liquid, and NPO, with diet advancement to regular/mechanical soft 04/04. Overall PO intake is poor with mostly 0-25% PO intake not meeting estimated nutrient needs. Recommend an Ensure Enlive TID to optimize PO intake, to be sent pending physician approval in EMR. LBM 04/06 per EMR. Will continue to follow closely and make recommendations as appropriate. Recommendations: 1) Continue regular mechanical soft diet 2) Ensure Enlive TID, pending physician approval in EMR 3) Encourage PO intake and honor food preferences as able; assist with meals PRN 4) Continue routine Thiamine and Folic acid, add routine MVI given EtOH hx with elevated MCV 5) Routine bowel care 6) Scaled weight this admit; subsequent weekly scaled weights Addendum: 04/07/23 at [address] Amended: Links added.
[2023-04-07] MEDS ORDERED: folic acid 1mg tablet PO ONE (17:15)
[2023-04-07] MEDS ORDERED: NALT50TA PO (17:39)
[2023-04-07] MEDS ORDERED: PANT-47 PO (17:45)
--- NOTE | 2023-04-07 17:55 | NUR ---
Pt was given discharge paperwork and was given education. Pt left in no distress, stable, alert and oriented. Pt. left with all of his belongings with his son Aidan. He was wheelchaired to the lobby and went in a private vehicle with his son driving.
[2023-04-07] MEDS ORDERED: lactose-reduced food (Ensure Enlive) - 237ml bottle PO SCH (18:00)
[2023-04-08] MEDS ORDERED: folic acid 1mg tablet PO SCH (08:00)
[2023-04-08] MEDS ORDERED: folic acid/vitamin B complex w/vitamin C 0.8mg tablet PO SCH (08:00)
== END 2023-04-07 17:53 | disposition home or self-care (01) | DRG 871 ==
LOC: ER 00:08 → ED HOLD 04:00 → ORTHO 4S 07:00
PROVIDERS: ADMIT Family Medicine; ATTEND Family Medicine
PROC: 0W9G30Z Drainage of Peritoneal Cavity with Drainage Device, Percutaneous Approach (ICD-10-PCS; principal; 2023-04-04)
DX: A41.9 Sepsis, unspecified organism (principal); E43 Unspecified severe protein-calorie malnutrition; N17.0 Acute kidney failure with tubular necrosis; K29.21 Alcoholic gastritis with bleeding; G93.41 Metabolic encephalopathy; I21.A1 Myocardial infarction type 2; E87.1 Hypo-osmolality and hyponatremia; F10.27 Alcohol dependence with alcohol-induced persisting dementia; Z20.822 Contact with and (suspected) exposure to COVID-19; K72.10 Chronic hepatic failure without coma; K70.31 Alcoholic cirrhosis of liver with ascites; E88.09 Other disorders of plasma-protein metabolism, not elsewhere classified; D50.8 Other iron deficiency anemias; I95.9 Hypotension, unspecified; Z68.26 Body mass index [BMI] 26.0-26.9, adult; Z66 Do not resuscitate; I12.9 Hypertensive chronic kidney disease with stage 1 through stage 4 chronic kidney disease, or unspecified chronic kidney disease; N18.9 Chronic kidney disease, unspecified; D69.6 Thrombocytopenia, unspecified
CPT/HCPCS: 36415; 49083; 70450; 71045; 74176; 76705; 76770; 76942; 80053; 80320; 82140; 82550; 82553; 82948; 83605; 83735; 83880; 84100; 84484; 85007; 85008; 85025; 85027; 85610; 85730; 87040; 87081; 87811; 92508; 92616; 93005; 94664; 94760; 96360; 97116; 97162; 97530; 99285; A4349; A4615; A6212; A6213; A6222; A6250; A6258; A6449; C9113; G0378; J0696; J0780; J2405; J7030; J7042; J7120